=== PATIENT | female | born 1975 | race Caucasian/White ===

== ENCOUNTER → 2018-09-22 | Outpatient (CLI) | payer MEDICAID, SELFPAY | END | disposition home or self-care (01) | PROVIDERS: Referring Provider Dermatology Pediatric Dermatology; Visit Provider Dermatology Pediatric Dermatology | DX: L08.9 Local infection of the skin and subcutaneous tissue, unspecified (principal) | CPT/HCPCS: 87070; 87077; 87186; 87205 ==

== ENCOUNTER 2024-12-20 08:27 | Inpatient (IN) | payer SELFPAY ==
[2024-12-20] VITALS (14 sets, daily range): BP systolic 119–155; BP diastolic 91–135; PULSE 124–145; RESP 8–24; TEMP 35.8–36.7; O2SAT 88–99; BMI 23.3; BMI 21.9
[2024-12-20] MEDS: 0.9% Normal Saline (1000mL) 1,000 ML 999 ML IV (09:04)
[2024-12-20 09:21] LABS: Hematocrit 47.1 % (37-47); Hemoglobin 16.5 g/dL (12.0-15.0); Immature Granulocytes Count 0.090 X10^3/uL (0.0-0.0); Mean Corp Hgb Conc 35.0 g/dL (32-36); Mean Corpuscular Volume 93.3 fL (81-99); Mean Platelet Vol. 10.5 fl (6.2-12.0); NRBC Flagged by Analyzer 0 % (0-5); Platelet Count 279 K/mm3 (150-450); RBC Distribution Width CV 11.9 % (11.6-14.6); RBC Distribution Width SD 40.8 fl (35.1-43.9); Red Blood Count 5.05 M/mm3 (4.2-5.4); White Blood Count 17.5 K/mm3 (4.4-11.0)
[2024-12-20 09:53] LABS: Color, Urine Yellow (Yellow); Glucose, Dipstick 250 mg/dl (Normal); Ketone-Dipstick 50 mg/dl (Negative); Leukocyte Esterase-Dipstick 25 /ul (Negative); Nitrite-Dipstick Negative (Negative); Occult Blood-Urine 50 /ul (Negative); Protein-Dipstick 100 mg/dl (Negative); Specific Gravity, Urine 1.025 (1.002-1.030); Urine Bilirubin Dipstick Negative (Negative)
[2024-12-20 10:08] LABS: Red Blood Cells-Urine 0-5 SEEN /hpf (0-5)
[2024-12-20 10:09] LABS: Internal QC Validated? YES +Cl - CLEAR BKGD; Mucous, Urine 1+ /hpf (<or=2+); Squamous Epithelial Cells - UA 5-10 SEEN /hpf (5-10)
[2024-12-20 10:10] LABS: Pregnancy, Urine Negative Negative; Record Kit Lot#,Urine Preg 0000980607
[2024-12-20 10:43] LABS: AST(SGOT) 37 U/L (<=31); Alanine Aminotransfer ALT/SGPT 20 U/L (<=34); Albumin, Serum 4.6 g/dL (3.5-5.0); Alkaline Phosphatase 73 U/L (35-104); Anion Gap 16 (5-15); BUN 16 mg/dL (4-19); BUN/Creat Ratio 20.0 RATIO (10-20); Calcium,Total 10.2 mg/dL (7.6-11.0); Carbon Dioxide 26.0 mmol/L (21.0-32.0); Chloride 92 mmol/L (98-108); Estimated Creatinine Clearance 84.84 ml/min (50-250); Globulin 3.6 g/dL (2.2-4.2); Glucose 239 mg/dL (70-99); Lipase 15 U/L (13-75); Potassium 4.2 mmol/L (3.3-5.1)
[2024-12-20 10:55] LABS: FI02 6.0; SITE Not entered; VBG BASE EXCESS 7 mmol/L (-1.0-3.5); VBG PO2 23 mmHg (25-40); VBG SO2 37 % (50-70); VBG TCO2 34 mmol/L (23-33)
[2024-12-20 11:06] LABS: Prothrombin Time (Protime)PT. 12.8 SECONDS (11.7-14.9)
[2024-12-20] MEDS: Piperacil/Tazobactam 4.5 GM in 0.9% Normal Saline (100mL MB+) 100 ML IV (11:06)
[2024-12-20 11:07] LABS: Partial Thromboplast Time 26.7 Seconds (24.1-36.2)
[2024-12-20 11:58] LABS: Pro- Brain NATRIURETIC PEPTIDE 6387 pg/mL (<=450)
[2024-12-20] MEDS: Vancomycin HCl 1,750 MG in 0.9% Normal Saline (500mL Bag) 500 ML 250 MG IV (11:58)
[2024-12-20 11:59] LABS: Troponin T High Sensitivity 341 ng/L (<=14)
[2024-12-20 12:11] LABS: Allen Test Positive; Base Excess 4 mmol/L (-2 to +2); Comment 45 lpm; FI02 75.0; PO2 64 mmHG (75-100); SITE R Radial; SO2 92 % (95-99)
[2024-12-20 13:55] LABS: Troponin T High Sens 2 HR 201 ng/L (<=14)
[2024-12-20 14:50] LABS: Reflex Lactate? Y
[2024-12-20] MEDS: 0.9% Saline Lock 10 ML Syringe IV (15:15)
[2024-12-20] MEDS: 0.9% Normal Saline (250mL Bag) 250 ML 15 ML IV (15:15)
[2024-12-20] MEDS: Ceftriaxone 2 GM in 0.9% Normal Saline (50mL MB+) 50 ML IV (15:15)
[2024-12-20 15:45] LABS: Troponin T High Sens 4 HR 277 ng/L (<=14)
[2024-12-20 15:52] LABS: Magnesium 2.2 mg/dL (1.5-2.2)
== END 2024-12-20 17:37 | disposition short-term general hospital (02) | DRG 871 ==
LOC: ED 09:37 → ICU 12:59
PROVIDERS: Admitting Provider Internal Medicine; Emergency Provider Student in an Organized Health Care Education/Training Program; PCP Family Medicine; Visit Provider Internal Medicine
DX: A41.59 Other Gram-negative sepsis (principal); J96.01 Acute respiratory failure with hypoxia; J18.9 Pneumonia, unspecified organism; I24.89 Other forms of acute ischemic heart disease; N39.0 Urinary tract infection, site not specified; I51.4 Myocarditis, unspecified; F17.210 Nicotine dependence, cigarettes, uncomplicated; F17.290 Nicotine dependence, other tobacco product, uncomplicated; R11.2 Nausea with vomiting, unspecified; F90.9 Attention-deficit hyperactivity disorder, unspecified type; R73.9 Hyperglycemia, unspecified; R10.9 Unspecified abdominal pain; Z79.899 Other long term (current) drug therapy
CPT/HCPCS: 36415; 36600; 71275; 74177; 80053; 81001; 81025; 82803; 83036; 83605; 83690; 83735; 83880; 84100; 84443; 84484; 85025; 85610; 85730; 87040; 87086; 87088; 87149; 87449; 87631; 87633; 87641; 93005; 93306; 94002; 94660; 99252; 99283; Q9957; Q9967; A4216; C8929; G0463; J0696; J2405